=== PATIENT | female | born 1970 | race Caucasian/White ===

== ENCOUNTER 2016-05-02 15:08 | Emergency (ER) | payer SELFPAY ==
[2016-05-02 15:57] VITALS: BP 125/70; PULSE 76; TEMP 98.3
[2016-05-02 15:58] VITALS: BMI 30.5
--- NOTE | 2016-05-02 16:33 | DIRPT ---
CLINICAL DATA: Pain and swelling without trauma. EXAM: RIGHT WRIST - COMPLETE 3+ VIEW COMPARISON: None. FINDINGS: No acute fracture or dislocation. Joint spaces maintained. Scaphoid intact. Suggestion of dorsal soft tissue swelling on the lateral view. IMPRESSION: No acute osseous abnormality. Electronically Signed By: Moreno Elizabeth M.D. On: 05/02/2016 16:31
--- NOTE | 2016-05-02 16:45 | EDPRACDOC ---
- General Information Chief Complaint: Wrist Pain Stated Complaint: RT WRIST PAIN NO INJURY Time Seen by Provider: 05/02/16 16:25 Information Source: Patient Mode of Arrival: Car Home Medications: Home Medications MetFORMIN, Extended Release [Glucophage Xr] 1,000 mg PO BID 05/02/16 Allergies/Adverse Reactions: Allergies Allergy/AdvReac Type Severity Reaction Status Date / Time codeine [Codeine] Allergy Mild Nausea/Vomi Verified 06/13/15 05:04 ting diphenhydramine HCl Allergy Unknown RASH Verified 06/13/15 05:04 [From Benadryl] Penicillins Allergy Unknown Rash-Genera Verified 06/13/15 05:04 lized - History of Present Illness Onset: this morning HPI: PT PRESENTS TODAY WITH PAINFUL MASS TO VOLAR RIGHT WRIST THAT DEVELOPED THIS MORNING. NO INJURY OR FEVER. Location: Reports: [place], Radial Mechanism: Reports: No Injury/Trauma Pain Severity: Reports: Mild Associated Signs and Symptoms: Reports: None ED Past Medical History - History Reviewed Yes Nurses notes reviewed and agree except as marked - Patient Medical History Neurological History: Reports: Migraine Respiratory History: Reports: Asthma GI/ History: Reports: Gastroesophageal Reflux, Pancreatitis Psychological History: Denies: Depression, Substance Use Disorder Systemic History: Reports: Diabetes Surgical History: Reports: Other (tendon repair of right foot). Denies: Hysterectomy - Family Medical History Reports: Hypertension, Diabetes - Social Medical History Smoking Status: Heavy tobacco smoker (5 or more cigarettes/day or daily pipe/ cigar) Social History: Denies: Marijuana Use, Substance Use Disorder EDM Review of Systems - Review of Systems ROS Negative Except as Marked: Yes All systems reviewed and were negative except as marked Constitutional: No Symptoms Reported Neurological: No Symptoms Reported Musculoskeletal: Wrist Integumentary: Wound - Physical Exam Constitutional: Alert (Awake), No apparent distress Oriented to: Time, Person, Place Last recorded Vital Signs: Last Vital Signs Temp 98.3 F 05/02/16 15:56 Pulse 76 05/02/16 15:56 Resp 18 05/02/16 15:56 BP 125/70 05/02/16 15:56 Pulse Ox 98 05/02/16 15:56 Oxygen Pulse Oxygen Saturation 98 O2 Device Oxygen Flow Rate Fraction of Inspired Oxygen ( FIO2) - HEENT Head: Normal Eye Exam: Normal Neck: Normal, Denies Pain, Midline - Respiratory/Cardiovascular Respiratory: Normal - CTA Cardiovascular: Normal - Musculoskeletal Back: Normal Extremities: Other (NOTED GANGLION CYST TO RIGHT VOLAR WRIST; NO INFECTION/ DEFORMITY/BRUISING NOTED) - Integumentary Skin: Normal Lymphatics: Normal - Neurologic Cerebellar: Normal Mood Description: Normal Thought: Coherent ED Wrist Problem Exam Wrist Symptoms: Mild Tenderness, Other (GANGLION CYST) Hand Symptoms: Normal Forearm Symptoms: Normal Distal Function/Circulation: Normal - Integumentary Skin: Normal Lymphatics: Normal Decision Time to Discharge: 16:44 - Departure Disposition: Home Condition: Good Final Diagnosis: Ganglion cyst Instructions: Ganglion Cysts (ED) Education/Counseling Given To: Patient Education/Counseling Given Regarding: Diagnosis, Treatment, Follow Up Referrals: Amarjit Anderson MD [Primary Care Provider] - One Week Additional Instructions: IBUPROFEN NEEDED FOR PAIN. HAVE ORTHO SURGICALLY REMOVE THIS IF IT CONTINUES TO BOTHER YOU.
== END 2016-05-02 16:48 | disposition home or self-care (01) ==
LOC: EDMC 15:08
DX: M67.431 Ganglion, right wrist (principal)
CPT/HCPCS: 99282